=== PATIENT | male | born 1945 | race Caucasian/White ===

== ENCOUNTER 2025-02-18 00:32 | Inpatient (IN) | payer MEDICARE, OTHER ==
[~2025-02-18] VITALS: Ht 165.1 cm; Wt 59.4 kg
[2025-02-18 01:29] LABS: PLATELET COUNT (AUTO) 348 K/uL (150-450); RED BLOOD CELL COUNT(AUTO) 3.29 MIL/uL (4.5-6.0); RED CELL DISTRIBUTION WIDTH 19.7 % (11.5-15.0); WHITE BLOOD COUNT (AUTO) 7.4 K/uL (4.3-11.0)
[2025-02-18 01:40] LABS: CALCIUM, SERUM 8.5 mg/dL (8.5-10.1); CREATININE 1.2 mg/dL (0.6-1.3); SODIUM SERUM 138 mmol/L (136-145); UREA NITROGEN, BLOOD 40 mg/dL (7-18)
[2025-02-18 01:41] LABS: INR 1.09 (0.91-1.10)
[2025-02-18 01:46] LABS: ASPARTATE AMINOTRANSFERASE 22 U/L (15-37); TOTAL PROTEIN, SERUM 5.7 g/dL (6.4-8.2)
[2025-02-18 01:50] LABS: LACTIC ACID 2.0 mmol/L (0.4-2.0)
[2025-02-18] MEDS: IV NS 0.9% 500 ML BAG IV ONE (01:54)
[2025-02-18] MEDS ORDERED: ACYC400T19 PO (01:55)
[2025-02-18] MEDS ORDERED: FLUO20CA42 PO (01:55)
[2025-02-18] MEDS ORDERED: POLY250017 PO (01:55)
[2025-02-18] MEDS ORDERED: ZINC220T3 PO (01:55)
[2025-02-18] MEDS ORDERED: FURO20TA4 PO (01:55)
[2025-02-18] MEDS ORDERED: DONE5TAB34 PO (01:55)
[2025-02-18] MEDS ORDERED: AMLO-212 PO (01:55)
[2025-02-18] MEDS ORDERED: ASPI-1169 PO (01:55)
[2025-02-18] MEDS ORDERED: INSU100V42 SUBCUT (01:55)
[2025-02-18] MEDS ORDERED: ASCO500C18 PO (01:55)
[2025-02-18] MEDS ORDERED: MELA10TA7 PO (01:55)
[2025-02-18] MEDS ORDERED: IPRA3AMP23 IH (01:55)
[2025-02-18] MEDS ORDERED: HYDR-4077 PO (01:55)
[2025-02-18] MEDS ORDERED: ATOR80TA PO (01:55)
[2025-02-18] MEDS ORDERED: CARV12.52 PO (01:55)
[2025-02-18] MEDS ORDERED: AMIN700T PO (01:55)
[2025-02-18] MEDS ORDERED: MULT-213 PO (01:55)
[2025-02-18] MEDS ORDERED: LEVO137T2 PO (01:55)
[2025-02-18] MEDS ORDERED: INSU100V7 SQ (01:55)
[2025-02-18 01:58] LABS: APPEARANCE,URINE SLIGHTLY CLOUDY (CLEAR); BLOOD, URINE 1+ Ery/uL (NEGATIVE); LEUKOCYTE ESTERASE ,URINE 1+ (NEGATIVE); NITRITE, URINE NEGATIVE (NEGATIVE); UGLUCOSE NEGATIVE (NEGATIVE)
[2025-02-18 02:05] LABS: ABG BASE EXCESS -2.8 mmol/L (-2.0-3.0); ABG OXYGEN SATURATION 96.9 % (94.0-98.0); ABG PCO2 51.4 mmHg (35.0-48.0); ABG PH 7.288 (7.350-7.450); ABG PO2 102.0 mmHg (83.0-108.0); ABG TOTAL HEMOGLOBIN 10.0 G/dL (13.5-17.5); FRACTIONATED INSPIRED OXYGEN 100.0 %; SET RATE, BG 20.0; SITE, ABG RIGHT BRACHIAL
[2025-02-18] MEDS ORDERED: INSULIN REGULAR, HUMAN 100 UNIT/ML 10 ML VIAL ONE (02:08)
[2025-02-18] MEDS: INSULIN REGULAR, HUMAN 100 UNIT/ML 10 ML VIAL IV ONE (02:11)
[2025-02-18 02:16] LABS: ADD URINE CULTURE YES
[2025-02-18 02:18] LABS: YEAST,URINE Few /HPF (None Seen)
[2025-02-18 02:20] LABS: COARSE GRANULAR CASTS,URINE Few /LPF (None Seen)
[2025-02-18] MEDS ORDERED: CEFTRIAXONE 1GM BAG (ER ONLY) 50 ML IV ONE (02:28)
[2025-02-18] MEDS: CEFTRIAXONE 1GM BAG (ER ONLY) 1 GM/50 ML PIGGYBACK IV ONE (02:29)
[2025-02-18] MEDS ORDERED: Z GUARD REMEDY 4 OZ OINT TP PRN (03:30)
[2025-02-18] MEDS ORDERED: MAGNESIUM HYDROXIDE 30 ML UDC PO PRN (03:30)
[2025-02-18] MEDS ORDERED: DOSING PER PHARMACY-VANCOMYCIN IV XX PRN (03:30)
[2025-02-18] MEDS ORDERED: INSULIN REGULAR, HUMAN 100 UNIT/ML 3 ML VIAL SQ PRN (03:30)
[2025-02-18] MEDS ORDERED: ACETAMINOPHEN 325 MG TABLET PO PRN (03:30)
[2025-02-18] MEDS ORDERED: ONDANSETRON HCL/PF 4 MG/2 ML VIAL IVP PRN (03:30)
[2025-02-18] MEDS ORDERED: DOSING PER PHARMACY-CEFEPIME IVPB XX PRN (03:30)
[2025-02-18] MEDS: ENOXAPARIN SODIUM 40 MG/0.4 ML DISP.SYRIN SQ SCH (06:30)
[2025-02-18] MEDS ORDERED: ENOXAPARIN SODIUM 40 MG/0.4 ML DISP.SYRIN SQ ONE (06:31)
[2025-02-18 07:30] LABS: ABG BASE EXCESS 2.5 mmol/L (-2.0-3.0); ABG OXYGEN SATURATION 97.8 % (94.0-98.0); ABG PCO2 44.5 mmHg (35.0-48.0); ABG PH 7.409 (7.350-7.450); ABG PO2 110.1 mmHg (83.0-108.0); ABG TOTAL HEMOGLOBIN 10.1 G/dL (13.5-17.5); FRACTIONATED INSPIRED OXYGEN 80.0 %; SET RATE, BG 20.0; SITE, ABG RIGHT RADIAL
[2025-02-18] MEDS: PANTOPRAZOLE 40 MG TABLET.DR PO SCH (07:30)
[2025-02-18] MEDS ORDERED: BLOOD SUGAR DIAGNOSTIC 1 EACH STRIP IN SCH (07:30)
[2025-02-18 08:00] VITALS: BP 141/66; TEMP 97.9; O2SAT 95
[2025-02-18] MEDS ORDERED: DEXTROSE 50%-WATER 50 ML DISP.SYRIN IV PRN (08:00)
[2025-02-18] MEDS ORDERED: HOME MED MISCELLANEOUS XX SCH (08:00)
[2025-02-18] MEDS ORDERED: POLYETHYLENE GLYCOL 3350 17 GM POWD.PACK PO PRN (08:00)
[2025-02-18] MEDS: CARVEDILOL 12.5 MG TABLET PO SCH (09:00)
[2025-02-18] MEDS: ASCORBIC ACID 500 MG TABLET PO SCH (09:00)
[2025-02-18] MEDS: PROSOURCE / PROSTAT (PYXIS) 30 ML UDC PO SCH (09:00)
[2025-02-18] MEDS: ACYCLOVIR 200 MG CAPSULE PO SCH (09:00)
[2025-02-18] MEDS: AMLODIPINE BESYLATE 5 MG TABLET PO SCH (09:00)
[2025-02-18] MEDS: LEVOTHYROXINE SODIUM 137 MCG TABLET PO SCH (09:00)
[2025-02-18] MEDS: FLUOXETINE HCL 20 MG CAPSULE PO SCH (09:00)
[2025-02-18] MEDS: ZINC SULFATE 220 MG CAPSULE PO SCH (09:00)
[2025-02-18] MEDS: ASPIRIN 81 MG TAB.CHEW PO SCH (09:00)
[2025-02-18] MEDS: MULTIVITAMINS,THERAGRAN 1 UDTAB TABLET PO SCH (09:00)
[2025-02-18] MEDS ORDERED: AMIN30LI66 PO (09:03)
[2025-02-18] MEDS ORDERED: ZINC56.713 TP (09:03)
[2025-02-18] MEDS ORDERED: COLL30OI TP (09:03)
[2025-02-18] MEDS ORDERED: GLUC1KIT SQ (09:03)
[2025-02-18] MEDS ORDERED: LIDO1ADH82 TP (09:03)
[2025-02-18] MEDS ORDERED: SENN-261 PO (09:03)
[2025-02-18] MEDS ORDERED: INSU100V42 SQ (09:03)
[2025-02-18] MEDS ORDERED: ACET325T53 PO ×2 (09:03)
[2025-02-18] MEDS: VANCOMYCIN 1 GM in IV D5W 250ml IV ONE (11:37)
[2025-02-18] MEDS: BUMETANIDE INJ 4 MG in IV D5W 24 ML IV ONE (11:38)
[2025-02-18] MEDS: DEXTROSE 50%-WATER 50 ML DISP.SYRIN IV PRN (11:53)
[2025-02-18] MEDS: BLOOD SUGAR DIAGNOSTIC 1 EACH STRIP IN SCH (11:54)
[2025-02-18 12:00] VITALS: BP 145/48; TEMP 97.2; O2SAT 100
[2025-02-18] MEDS: CEFEPIME 2 GM in IV D5W 100 ML IV SCH (13:24)
[2025-02-18 16:00] VITALS: BP 152/89; TEMP 99.5; O2SAT 96
[2025-02-18] MEDS: IV D5/ 0.9% NACL 1,000 ML IV PRN (17:02)
[2025-02-18] MEDS: INSULIN REGULAR, HUMAN 100 UNIT/ML 3 ML VIAL SQ PRN (18:37)
[2025-02-18 20:00] VITALS: BP 154/62; TEMP 98.1; O2SAT 95
[2025-02-18] MEDS: VANCOMYCIN 750 MG in IV D5W 250 ML IV SCH (21:41)
[2025-02-18] MEDS: DONEPEZIL 5 MG TABLET PO SCH (22:00)
[2025-02-18] MEDS: ATORVASTATIN 40 MG TABLET PO SCH (22:00)
[2025-02-18] MEDS: FUROSEMIDE 20 MG/2 ML VIAL IV SCH (22:05)
[2025-02-18] MEDS: INSULIN GLARGINE, 100 UNIT/ML CARTRIDGE SQ SCH (22:21)
[2025-02-19] VITALS (9 sets, daily range): BP systolic 140–173; BP diastolic 50–71; TEMP 97.7–99.5; O2SAT 95–100
[2025-02-19 07:12] LABS: PLATELET COUNT (AUTO) 281 K/uL (150-450); RED BLOOD CELL COUNT(AUTO) 3.43 MIL/uL (4.5-6.0); RED CELL DISTRIBUTION WIDTH 19.3 % (11.5-15.0); WHITE BLOOD COUNT (AUTO) 5.7 K/uL (4.3-11.0)
[2025-02-19 07:28] LABS: CALCIUM, SERUM 8.2 mg/dL (8.5-10.1); CREATININE 1.0 mg/dL (0.6-1.3); PHOSPHORUS 2.9 mg/dL (2.5-4.9); SODIUM SERUM 143.0 mmol/L (136-145); UREA NITROGEN, BLOOD 23.0 mg/dL (7-18)
[2025-02-19] MEDS: IPRATROPIUM NEB FS 0.5 MG/2.5 ML AMPUL.NEB NEB PRN (08:48)
[2025-02-19] MEDS: ALBUTEROL FS 2.5 MG/3 ML VIAL.NEB NEB PRN (08:49)
[2025-02-19 09:39] LABS: ABG BASE EXCESS 8.6 mmol/L (-2.0-3.0); ABG OXYGEN SATURATION 96.7 % (94.0-98.0); ABG PCO2 41.4 mmHg (35.0-48.0); ABG PH 7.511 (7.350-7.450); ABG PO2 86.7 mmHg (83.0-108.0); ABG TOTAL HEMOGLOBIN 11.2 G/dL (13.5-17.5); FLOW, BLOOD GAS 6.00 L/min (0.00-30.00); FRACTIONATED INSPIRED OXYGEN 44.0 %; SITE, ABG RIGHT RADIAL
[2025-02-19] MEDS: THERAHONEY GEL 1.5 OZ TUBE TP SCH (10:24)
[2025-02-19] MEDS: hydrALAZINE HCL IV 20 MG VIAL IV PRN (10:36)
[2025-02-19] MEDS: POTASSIUM CL. PREMIX PERIPHER. 50 ML IV SCH (11:30)
[2025-02-19] MEDS: MUPIROCIN OINT 2% 22 GM TUBE NS SCH (14:40)
[2025-02-19] MEDS ORDERED: DEXTROSE 50%-WATER 50 ML DISP.SYRIN IV PRN (21:30)
[2025-02-20] VITALS: BP 158/59; TEMP 97.7; O2SAT 99
[2025-02-20] MEDS: BLOOD SUGAR DIAGNOSTIC 1 EACH STRIP IN SCH (00:28)
[2025-02-20] MEDS: INSULIN REGULAR, HUMAN 100 UNIT/ML 3 ML VIAL SQ PRN (00:29)
[2025-02-20 04:00] VITALS: BP 136/58; TEMP 97.5; O2SAT 96
[2025-02-20 06:49] LABS: PLATELET COUNT (AUTO) 260 K/uL (150-450); RED BLOOD CELL COUNT(AUTO) 3.99 MIL/uL (4.5-6.0); RED CELL DISTRIBUTION WIDTH 19.2 % (11.5-15.0); WHITE BLOOD COUNT (AUTO) 4.8 K/uL (4.3-11.0)
[2025-02-20 06:55] LABS: CALCIUM, SERUM 8.3 mg/dL (8.5-10.1); CREATININE 0.7 mg/dL (0.6-1.3); UREA NITROGEN, BLOOD 17.0 mg/dL (7-18)
[2025-02-20 08:00] VITALS: BP 144/80; TEMP 97.9; O2SAT 99
[2025-02-20 08:26] LABS: SODIUM SERUM 142.0 mmol/L (136-145)
[2025-02-20] MEDS: POTASSIUM CL. PREMIX PERIPHER. 50 ML IV SCH (10:33)
[2025-02-20 11:48] LABS: LYMPHOCYTES % (MANUAL) 10 % (16-48); MONOCYTES % (MANUAL) 2 % (0-11.0); MYELOCYTES % 1 % (0-0); NEUTROPHILS % (MANUAL) 87 (42-76); PLATELET ESTIMATE ADEQUATE
[2025-02-20 12:00] VITALS: BP 132/54; TEMP 97.3; O2SAT 94
[2025-02-20 16:00] VITALS: BP 149/63; TEMP 97.3; O2SAT 94
[2025-02-20 20:00] VITALS: BP 117/63; TEMP 97.8; O2SAT 99
[2025-02-21] VITALS: BP 98/64; TEMP 97.6; O2SAT 95
[2025-02-21 04:00] VITALS: BP 118/65; TEMP 97.6; O2SAT 95
[2025-02-21 07:53] LABS: PLATELET COUNT (AUTO) 238 K/uL (150-450); RED BLOOD CELL COUNT(AUTO) 3.62 MIL/uL (4.5-6.0); RED CELL DISTRIBUTION WIDTH 18.7 % (11.5-15.0); WHITE BLOOD COUNT (AUTO) 4.1 K/uL (4.3-11.0)
[2025-02-21 08:00] VITALS: BP 133/51; TEMP 97.9; O2SAT 100
[2025-02-21 08:04] LABS: CALCIUM, SERUM 7.7 mg/dL (8.5-10.1); CREATININE 0.6 mg/dL (0.6-1.3); UREA NITROGEN, BLOOD 14.0 mg/dL (7-18)
[2025-02-21 08:20] LABS: SODIUM SERUM 136.0 mmol/L (136-145)
[2025-02-21] MEDS: POTASSIUM CHLORIDE 20 MEQ TAB.PRT.SR PO ONE ×2 (10:55→12:20)
[2025-02-21 12:00] VITALS: BP 106/58; TEMP 97.5; O2SAT 98
[2025-02-21] MEDS ORDERED: IV NS 0.9% 250 ML IV ONE (15:13)
[2025-02-21] MEDS ORDERED: IOHEXOL-350 100 ML VIAL IV ONE (15:13)
[2025-02-21 16:00] VITALS: BP 135/58; TEMP 97.7; O2SAT 98
[2025-02-21 20:00] VITALS: BP 118/98; TEMP 97.6; O2SAT 100
[2025-02-22] VITALS: BP 106/88; TEMP 97.6; O2SAT 96
[2025-02-22 04:00] VITALS: BP 113/90; TEMP 97.6; O2SAT 97
[2025-02-22 07:58] LABS: PLATELET COUNT (AUTO) 218 K/uL (150-450); RED BLOOD CELL COUNT(AUTO) 3.54 MIL/uL (4.5-6.0); RED CELL DISTRIBUTION WIDTH 18.6 % (11.5-15.0); WHITE BLOOD COUNT (AUTO) 4.4 K/uL (4.3-11.0)
[2025-02-22 08:00] VITALS: BP 131/64; TEMP 97.5; O2SAT 96
[2025-02-22 08:28] LABS: CALCIUM, SERUM 7.7 mg/dL (8.5-10.1); CREATININE 0.6 mg/dL (0.6-1.3); SODIUM SERUM 134.0 mmol/L (136-145); UREA NITROGEN, BLOOD 15.0 mg/dL (7-18)
[2025-02-22] MEDS: POTASSIUM CHLORIDE 20 MEQ TAB.PRT.SR PO SCH (10:23)
[2025-02-22 10:26] LABS: BAND % (MANUAL) 1 % (0.0-5.0); LYMPHOCYTES % (MANUAL) 8 % (16-48); MONOCYTES % (MANUAL) 3 % (0-11.0); NEUTROPHILS % (MANUAL) 88 (42-76); PLATELET ESTIMATE ADEQUATE
[2025-02-22 12:00] VITALS: BP 93/77; TEMP 97.1; O2SAT 97
[2025-02-22 16:00] VITALS: BP 114/67; TEMP 97.3; O2SAT 98
[2025-02-22] MEDS: ARGININE/GLUTAMINE/CALCIUM BMB 1 EACH POWD.PACK PO SCH (17:09)
[2025-02-22 20:00] VITALS: BP 104/74; TEMP 97.9; O2SAT 97
[2025-02-22] MEDS: VANCOMYCIN 1 GM in IV D5W 250ml IV SCH (21:50)
[2025-02-23] VITALS: BP 116/56; TEMP 97.7; O2SAT 97
[2025-02-23 04:00] VITALS: BP 109/61; TEMP 98.3; O2SAT 92
[2025-02-23 07:09] LABS: PLATELET COUNT (AUTO) 235 K/uL (150-450); RED BLOOD CELL COUNT(AUTO) 3.92 MIL/uL (4.5-6.0); RED CELL DISTRIBUTION WIDTH 18.5 % (11.5-15.0); WHITE BLOOD COUNT (AUTO) 3.9 K/uL (4.3-11.0)
[2025-02-23 07:26] LABS: CALCIUM, SERUM 7.9 mg/dL (8.5-10.1); CREATININE 0.6 mg/dL (0.6-1.3); SODIUM SERUM 136.0 mmol/L (136-145); UREA NITROGEN, BLOOD 12.0 mg/dL (7-18)
[2025-02-23 08:00] VITALS: BP 125/73; TEMP 97.5; O2SAT 99
[2025-02-23 12:00] VITALS: BP 117/98; TEMP 97.5; O2SAT 98
[2025-02-23 13:05] LABS: EOSINOPHILS % (MANUAL) 2 % (0-4); LYMPHOCYTES % (MANUAL) 12 % (16-48); MONOCYTES % (MANUAL) 3 % (0-11.0); NEUTROPHILS % (MANUAL) 83 (42-76); PLATELET ESTIMATE ADEQUATE
[2025-02-23 16:00] VITALS: BP 101/57; TEMP 97.2; O2SAT 97
[2025-02-23 20:00] VITALS: BP 127/81; TEMP 97.8; O2SAT 95
[2025-02-24] VITALS: BP 110/59; TEMP 98; O2SAT 94
[2025-02-24 04:00] VITALS: BP 119/63; TEMP 97.9; O2SAT 96
[2025-02-24 08:00] VITALS: BP 109/51; TEMP 98.1; O2SAT 99
[2025-02-24 08:53] LABS: PLATELET COUNT (AUTO) 226 K/uL (150-450); RED BLOOD CELL COUNT(AUTO) 3.76 MIL/uL (4.5-6.0); RED CELL DISTRIBUTION WIDTH 18.2 % (11.5-15.0); WHITE BLOOD COUNT (AUTO) 3.5 K/uL (4.3-11.0)
[2025-02-24 09:51] LABS: CALCIUM, SERUM 7.9 mg/dL (8.5-10.1); CREATININE 0.7 mg/dL (0.6-1.3); SODIUM SERUM 138.0 mmol/L (136-145); UREA NITROGEN, BLOOD 13.0 mg/dL (7-18)
[2025-02-24] MEDS: GUAIFENESIN LA 600 MG TABLET.SA PO PRN (11:30)
[2025-02-24 11:53] LABS: EOSINOPHILS % (MANUAL) 2 % (0-4); LYMPHOCYTES % (MANUAL) 37 % (16-48); MONOCYTES % (MANUAL) 4 % (0-11.0); NEUTROPHILS % (MANUAL) 57 (42-76)
[2025-02-24 11:54] LABS: PLATELET ESTIMATE ADEQUATE
[2025-02-24 12:00] VITALS: BP 118/55; TEMP 98.1; O2SAT 98
[2025-02-24 16:00] VITALS: BP 147/52; TEMP 97.3; O2SAT 98
[2025-02-24 20:00] VITALS: BP 112/61; TEMP 97.6; O2SAT 99
[2025-02-25] VITALS: BP 105/57; TEMP 97.9; O2SAT 98
[2025-02-25 04:00] VITALS: BP 137/54; TEMP 98; O2SAT 99
[2025-02-25 07:35] LABS: PLATELET COUNT (AUTO) 229 K/uL (150-450); RED BLOOD CELL COUNT(AUTO) 3.50 MIL/uL (4.5-6.0); RED CELL DISTRIBUTION WIDTH 18.3 % (11.5-15.0); WHITE BLOOD COUNT (AUTO) 3.1 K/uL (4.3-11.0)
[2025-02-25 07:42] LABS: CALCIUM, SERUM 7.7 mg/dL (8.5-10.1); CREATININE 0.8 mg/dL (0.6-1.3); SODIUM SERUM 135.0 mmol/L (136-145); UREA NITROGEN, BLOOD 21.0 mg/dL (7-18)
[2025-02-25 08:10] VITALS: BP 118/85; TEMP 97.9; O2SAT 99
[2025-02-25 12:10] VITALS: BP 126/55; TEMP 97.7; O2SAT 100
[2025-02-25 16:20] VITALS: BP 108/50; TEMP 97.6; O2SAT 99
[2025-02-25 20:00] VITALS: BP 110/75; TEMP 98.4; O2SAT 99
[2025-02-26] VITALS: BP_SYST 110; BP_SYST 132; BP_DIAS 75; BP_DIAS 98; TEMP 98.6; O2SAT 100
[2025-02-26 04:00] VITALS: BP 110/75; TEMP 98.4; O2SAT 100
[2025-02-26 07:28] LABS: PLATELET COUNT (AUTO) 257 K/uL (150-450); RED BLOOD CELL COUNT(AUTO) 3.98 MIL/uL (4.5-6.0); RED CELL DISTRIBUTION WIDTH 18.6 % (11.5-15.0); WHITE BLOOD COUNT (AUTO) 3.4 K/uL (4.3-11.0)
[2025-02-26 08:00] LABS: CALCIUM, SERUM 8.3 mg/dL (8.5-10.1); CREATININE 0.7 mg/dL (0.6-1.3); SODIUM SERUM 139.0 mmol/L (136-145); UREA NITROGEN, BLOOD 16.0 mg/dL (7-18)
[2025-02-26 09:10] VITALS: BP 104/39; TEMP 97.7; O2SAT 100
[2025-02-26 10:31] LABS: BAND % (MANUAL) 1 % (0.0-5.0); EOSINOPHILS % (MANUAL) 2 % (0-4); LYMPHOCYTES % (MANUAL) 14 % (16-48); MONOCYTES % (MANUAL) 3 % (0-11.0); NEUTROPHILS % (MANUAL) 80 (42-76); PLATELET ESTIMATE ADEQUATE
[2025-02-26 13:13] VITALS: BP 156/64; TEMP 97.8; O2SAT 100
== END 2025-02-26 14:34 | DRG 871 ==
LOC: ER 00:36 → TELE-TD 05:39 → TELE1 02-19 10:20 → MEDSG1 02-26 10:10
PROVIDERS: ADMIT Nurse Practitioner Acute Care; ATTEND Nurse Practitioner Acute Care
PROC: 5A09457 Assistance with Respiratory Ventilation, 24-96 Consecutive Hours, Continuous Positive Airway Pressure (ICD-10-PCS; principal; 2025-02-18)
DX: A41.9 Sepsis, unspecified organism (principal); G92.8 Other toxic encephalopathy; L89.153 Pressure ulcer of sacral region, stage 3; J15.69 Pneumonia due to other Gram-negative bacteria; J96.01 Acute respiratory failure with hypoxia; J96.02 Acute respiratory failure with hypercapnia; I50.31 Acute diastolic (congestive) heart failure; J69.0 Pneumonitis due to inhalation of food and vomit; I82.611 Acute embolism and thrombosis of superficial veins of right upper extremity; J90 Pleural effusion, not elsewhere classified; N17.9 Acute kidney failure, unspecified; N39.0 Urinary tract infection, site not specified; M86.8X7 Other osteomyelitis, ankle and foot; R65.20 Severe sepsis without septic shock; B96.1 Klebsiella pneumoniae [K. pneumoniae] as the cause of diseases classified elsewhere; B96.5 Pseudomonas (aeruginosa) (mallei) (pseudomallei) as the cause of diseases classified elsewhere; E44.0 Moderate protein-calorie malnutrition; I11.0 Hypertensive heart disease with heart failure; G30.9 Alzheimer's disease, unspecified; E11.65 Type 2 diabetes mellitus with hyperglycemia; E03.9 Hypothyroidism, unspecified; F32.A Depression, unspecified; D63.8 Anemia in other chronic diseases classified elsewhere; I70.244 Atherosclerosis of native arteries of left leg with ulceration of heel and midfoot; E87.20 Acidosis, unspecified; D68.59 Other primary thrombophilia; L97.422 Non-pressure chronic ulcer of left heel and midfoot with fat layer exposed; L97.418 Non-pressure chronic ulcer of right heel and midfoot with other specified severity; F02.83 Dementia in other diseases classified elsewhere, unspecified severity, with mood disturbance; E86.0 Dehydration; F02.80 Dementia in other diseases classified elsewhere, unspecified severity, without behavioral disturbance, psychotic disturbance, mood disturbance, and anxiety; E78.5 Hyperlipidemia, unspecified; E88.09 Other disorders of plasma-protein metabolism, not elsewhere classified; I25.10 Atherosclerotic heart disease of native coronary artery without angina pectoris; L89.316 Pressure-induced deep tissue damage of right buttock; R32 Unspecified urinary incontinence; Z66 Do not resuscitate; Z74.01 Bed confinement status; Z79.4 Long term (current) use of insulin; Z79.82 Long term (current) use of aspirin; E11.51 Type 2 diabetes mellitus with diabetic peripheral angiopathy without gangrene; M62.50 Muscle wasting and atrophy, not elsewhere classified, unspecified site; Z22.322 Carrier or suspected carrier of Methicillin resistant Staphylococcus aureus; L22 Diaper dermatitis; Z68.21 Body mass index [BMI] 21.0-21.9, adult; E11.40 Type 2 diabetes mellitus with diabetic neuropathy, unspecified; I70.234 Atherosclerosis of native arteries of right leg with ulceration of heel and midfoot; L89.326 Pressure-induced deep tissue damage of left buttock; E11.69 Type 2 diabetes mellitus with other specified complication; Z95.820 Peripheral vascular angioplasty status with implants and grafts; I70.1 Atherosclerosis of renal artery; Z85.79 Personal history of other malignant neoplasms of lymphoid, hematopoietic and related tissues
CPT/HCPCS: 36415; 36600; 70450-TC; 71045-TC; 71250-TC; 80048-TC; 80076-TC; 80202-TC; 81001; 82803-TC; 82962-TC; 83605-TC; 83735-TC; 83880; 84100-TC; 84484-TC; 85025-TC; 85027-TC; 85730-TC; 87040-TC; 87081-TC; 87086-TC; 87186-TC; 92526; 92611; 93307-TC; 93971-TC; 94760-TC; 94799-TC; 97110-TC; 97112-TC; 97530-TC; A4223; A6213; G0378; J0360; J0692; J0696; J1650; J1815; J1938; J3373; J3374; J3480; J3490; J7040; J7042; J7050; J7060; Q9967